=== PATIENT | female | born 1970 | race Caucasian/White ===

== ENCOUNTER 2020-07-14 06:50 | Outpatient (NON) | payer OTHER, SELFPAY ==
[2020-07-14 23:57] LABS: SARS-CoV-2 RNA PCR Negative
== END 2020-07-14 06:51 ==
PROVIDERS: Visit Provider Nurse Practitioner Family
DX: R61 Generalized hyperhidrosis (principal); Z20.828 Contact with and (suspected) exposure to other viral communicable diseases
CPT/HCPCS: 87635; C9803; U0003